=== PATIENT | male | born 2000 | race Caucasian/White ===

== ENCOUNTER 2021-02-10 12:15 | Emergency (ER) | payer MEDICAID, OTHER ==
[~2021-02-10] VITALS: Ht 167.6 cm; Wt 90.7 kg
[2021-02-10 13:33] VITALS: BP 139/75
== END 2021-02-10 15:20 | disposition home or self-care (01) ==
LOC: ER 12:15
DX: S69.81XA Other specified injuries of right wrist, hand and finger(s), initial encounter (principal); W26.8XXA Contact with other sharp object(s), not elsewhere classified, initial encounter; Y93.89 Activity, other specified; Y92.89 Other specified places as the place of occurrence of the external cause; Y99.8 Other external cause status
CPT/HCPCS: 73140